=== PATIENT | female | born 1950 | race Caucasian/White ===

== ENCOUNTER 2024-03-07 20:36 | Emergency (ER) | payer MEDICARE, OTHER ==
[~2024-03-07] VITALS: Ht 157.5 cm; Wt 49.9 kg
[2024-03-07 21:18] VITALS: TEMP 97.9
[2024-03-07] MEDS: TDAP [DIPH/PERTUSSIS/TET] 0.5 ML VIAL IM ONE (21:30)
[2024-03-07] MEDS ORDERED: TDAP [DIPH/PERTUSSIS/TET] 0.5 ML VIAL IM ONE (21:39)
[2024-03-07 22:44] VITALS: BP 131/69; O2SAT 95
== END 2024-03-07 23:20 | disposition home or self-care (01) ==
LOC: ER 20:49
DX: S00.03XA Contusion of scalp, initial encounter (principal); F03.90 Unspecified dementia, unspecified severity, without behavioral disturbance, psychotic disturbance, mood disturbance, and anxiety; W18.39XA Other fall on same level, initial encounter; Y93.89 Activity, other specified; Y92.89 Other specified places as the place of occurrence of the external cause; Y99.8 Other external cause status
CPT/HCPCS: 70450-TC; 72125-TC; 90715

== ENCOUNTER 2024-04-07 18:40 | Emergency (ER) | payer MEDICARE, OTHER ==
[~2024-04-07] VITALS: Ht 167.6 cm; Wt 59.0 kg
[2024-04-08 00:28] VITALS: BP 128/89; TEMP 98; O2SAT 96
== END 2024-04-08 00:28 ==
LOC: ER 18:42
DX: S00.83XA Contusion of other part of head, initial encounter (principal); F03.90 Unspecified dementia, unspecified severity, without behavioral disturbance, psychotic disturbance, mood disturbance, and anxiety; W01.0XXA Fall on same level from slipping, tripping and stumbling without subsequent striking against object, initial encounter; Y93.89 Activity, other specified; Y92.89 Other specified places as the place of occurrence of the external cause; Y99.8 Other external cause status
CPT/HCPCS: 70450-TC; 71045-TC; 72125-TC; 72170-TC; 73700-TC; 82962-TC

== ENCOUNTER 2024-05-07 09:41 | Inpatient (IN) | payer MEDICARE, OTHER ==
[2024-05-07] VITALS (23 sets, daily range): BP systolic 69–126; BP diastolic 44–93; TEMP 98.2–98.6; O2SAT 96–100
[~2024-05-07] VITALS: Ht 167.6 cm; Wt 62.6 kg
[2024-05-07] MEDS: IV NS 0.9% 1,000 ML BAG IV ONE (10:15)
[2024-05-07] MEDS: CEFEPIME 1 GM in IV D5W 50 ML IV ONE (10:23)
[2024-05-07] MEDS ORDERED: CHOL100043 PO (10:36)
[2024-05-07] MEDS ORDERED: CRAN400C PO (10:36)
[2024-05-07] MEDS ORDERED: SIME80TA15 PO (10:36)
[2024-05-07] MEDS ORDERED: ACET-868 PO (10:36)
[2024-05-07] MEDS ORDERED: ACET-2030 PO (10:36)
[2024-05-07] MEDS ORDERED: MAGN400O6 PO (10:36)
[2024-05-07] MEDS ORDERED: L. A1TAB10 PO (10:36)
[2024-05-07] MEDS: VANCOMYCIN 1 GM in IV D5W 250 ML IV ONE (10:50)
[2024-05-07 11:08] LABS: LYMPHOCYTES # (AUTO) 2.2 K/uL (0.8-4.8); LYMPHOCYTES % (AUTO) 10.9 % (20.0-44.0); MEAN CORPUSCULAR HEMOGLOBIN 29 PG (26.0-33.0); MEAN CORPUSCULAR HGB CONC 32 g/dl (31.0-36.0); MEAN CORPUSCULAR VOLUME 90 fL (82-100); MONOCYTES # (AUTO) 1.3 K/uL (0.1-1.30); MONOCYTES % (AUTO) 6.2 % (2.0-12.0); NEUTROPHILS # (AUTO) 16.9 K/uL (1.8-8.9); NEUTROPHILS % (AUTO) 82.9 % (43.0-81.0); PLATELET COUNT (AUTO) 137 K/uL (150-450); RED BLOOD CELL COUNT(AUTO) 6.71 MIL/uL (4.0-5.2); RED CELL DISTRIBUTION WIDTH 15.3 % (11.5-15.0); WHITE BLOOD COUNT (AUTO) 20.4 K/uL (4.3-11.0)
[2024-05-07 11:10] LABS: HEMOGLOBIN 19.1 g/dL (11.5-14.8)
[2024-05-07 11:11] LABS: HEMATOCRIT 61 % (33-45)
[2024-05-07 11:21] LABS: INR 1.3 (0.91-1.10); PROTHROMBIN TIME 13.5 SECS (9.2-11.1)
[2024-05-07 11:32] LABS: LYMPHOCYTES % (MANUAL) 10 % (16-48); MONOCYTES % (MANUAL) 3 % (0-11.0); NEUTROPHILS % (MANUAL) 87 (42-76); PLATELET ESTIMATE DECREASED
[2024-05-07] MEDS ORDERED: IV NS 0.9% 1,000 ML IV PRN (12:30)
[2024-05-07] MEDS ORDERED: ONDANSETRON HCL/PF 4 MG/2 ML VIAL IVP PRN (12:30)
[2024-05-07] MEDS ORDERED: ACETAMINOPHEN 325 MG TABLET PO PRN (12:30)
[2024-05-07 12:37] LABS: APPEARANCE,URINE TURBID (CLEAR); BILIRUBIN,URINE 2+ (NEGATIVE); BLOOD, URINE 3+ Ery/uL (NEGATIVE); COLOR,URINE YELLOW (YELLOW); KETONES,URINE TRACE mg/dL (NEGATIVE); LEUKOCYTE ESTERASE ,URINE 2+ (NEGATIVE); NITRITE, URINE POSITIVE (NEGATIVE); PH,URINE 5.5 (5.0-8.0); PROTEIN,URINE 2+ mg/dl (NEGATIVE); UGLUCOSE TRACE mg/dL (NEGATIVE)
[2024-05-07 12:44] LABS: ALANINE AMINOTRANSFERASE 43 U/L (12-78); ALKALINE PHOSPHATASE 101 U/L (46-116); ASPARTATE AMINOTRANSFERASE 40 U/L (15-37); BILIRUBIN,DIRECT 0.5 mg/dL (0.0-0.2); BILIRUBIN,TOTAL 1.5 mg/dL (0.2-1.0); CALCIUM, SERUM 8.4 mg/dL (8.5-10.1); CARBON DIOXIDE 17 mmol/L (21-32); CREATININE 2.9 mg/dL (0.6-1.3); GLUCOSE 197 mg/dL (74-106); POTASSIUM 4.2 mmol/L (3.5-5.1); TOTAL PROTEIN, SERUM 7.1 g/dL (6.4-8.2)
[2024-05-07 12:45] LABS: ADD URINE CULTURE YES; BACTERIA,URINE Many /HPF (None Seen); SQUAMOUS EPITHELIAL CELL,UR Few /HPF (None Seen); WBC,URINE TOO NUMEROUS TO COUN /HPF (0-3)
[2024-05-07 12:49] LABS: CHLORIDE 132 mmol/L (98-107); SODIUM SERUM 169 mmol/L (136-145); UREA NITROGEN, BLOOD 104 mg/dL (7-18)
[2024-05-07] MEDS ORDERED: NOREPINEPHRINE 8 MG in IV D5W 242 ML IV PRN (13:30)
[2024-05-07] MEDS ORDERED: NOREPINEPHRINE 32 MG in IV NS 0.9% 218 ML IV PRN (13:30)
[2024-05-07] MEDS: NOREPINEPHRINE 8 MG in IV D5W 242 ML IV PRN (14:50)
[2024-05-07] MEDS: IV NS 0.9% 1,000 ML IV PRN (15:08)
[2024-05-07 15:17] LABS: CALCIUM, SERUM 8.7 mg/dL (8.5-10.1); CREATININE 2.9 mg/dL (0.6-1.3); POTASSIUM 3.1 mmol/L (3.5-5.1)
[2024-05-07 18:17] LABS: CALCIUM, SERUM 8.3 mg/dL (8.5-10.1); CREATININE 2.9 mg/dL (0.6-1.3); POTASSIUM 2.9 mmol/L (3.5-5.1)
[2024-05-07] MEDS: IV 1/2NS 1000 ML 1,000 ML IV PRN (18:24)
[2024-05-07] MEDS: IV D5W 1,000 ML IV PRN (20:44)
[2024-05-07] MEDS: POTASSIUM CL. PREMIX PERIPHER. 50 ML IV SCH ×2 (21:17→23:30)
[2024-05-07 21:25] LABS: CALCIUM, SERUM 8.2 mg/dL (8.5-10.1)
[2024-05-07 21:50] LABS: POTASSIUM 2.7 mmol/L (3.5-5.1)
[2024-05-08] VITALS (66 sets, daily range): BP systolic 95–127; BP diastolic 63–85; TEMP 98–100; O2SAT 92–100
[2024-05-08 05:16] LABS: HEMATOCRIT 46 % (33-45); HEMOGLOBIN 15.1 g/dL (11.5-14.8); LYMPHOCYTES # (AUTO) 1.5 K/uL (0.8-4.8); LYMPHOCYTES % (AUTO) 9.9 % (20.0-44.0); MEAN CORPUSCULAR HEMOGLOBIN 29 PG (26.0-33.0); MEAN CORPUSCULAR HGB CONC 33 g/dl (31.0-36.0); MEAN CORPUSCULAR VOLUME 88 fL (82-100); MONOCYTES # (AUTO) 0.9 K/uL (0.1-1.30); MONOCYTES % (AUTO) 5.7 % (2.0-12.0); NEUTROPHILS # (AUTO) 12.6 K/uL (1.8-8.9); NEUTROPHILS % (AUTO) 84.4 % (43.0-81.0); RED BLOOD CELL COUNT(AUTO) 5.16 MIL/uL (4.0-5.2); RED CELL DISTRIBUTION WIDTH 14.5 % (11.5-15.0); WHITE BLOOD COUNT (AUTO) 14.9 K/uL (4.3-11.0)
[2024-05-08 05:42] LABS: CREATININE 2.7 mg/dL (0.6-1.3); PHOSPHORUS 2.1 mg/dL (2.5-4.9); POTASSIUM 3.4 mmol/L (3.5-5.1)
[2024-05-08 05:44] LABS: PLATELET COUNT (AUTO) 46 K/uL (150-450)
[2024-05-08 05:54] LABS: BASOPHILS % (MANUAL) 0 % (0.0-2.0); EOSINOPHILS % (MANUAL) 0 % (0-4); LYMPHOCYTES % (MANUAL) 11 % (16-48); MONOCYTES % (MANUAL) 3 % (0-11.0); NEUTROPHILS % (MANUAL) 86 (42-76)
[2024-05-08 05:55] LABS: PLATELET ESTIMATE DECREASED
[2024-05-08] MEDS ORDERED: HEPARIN SODIUM, PORCINE 5000 UNITS/1 ML VIAL SQ SCH (10:00)
[2024-05-08] MEDS: CEFEPIME 2 GM in IV D5W 100 ML IV SCH (10:13)
[2024-05-08] MEDS: PHENYLEPHRINE 50 MG in IV NS 0.9% 245 ML IV PRN (10:44)
[2024-05-08 14:06] LABS: ABG BASE EXCESS -4.7 mmol/L (-2.0-3.0); ABG OXYGEN SATURATION 93.3 % (94.0-98.0); ABG PCO2 22.4 mmHg (32.0-45.0); ABG PH 7.481 (7.350-7.450); ABG TOTAL HEMOGLOBIN 15.7 G/dL (12.0-16.0); COHb 0.3 % (0.5-1.5); MetHb 0.3 % (0.0-1.5); O2Hb 92.7 % (94.0-97.0); SITE, ABG LEFT RADIAL
[2024-05-08] MEDS: AMIODARONE 150 MG in IV D5W 100 ML IV ONE (14:40)
[2024-05-08] MEDS: AMIODARONE 450 MG in IV D5W 241 ML IV PRN (14:58)
[2024-05-09] VITALS (48 sets, daily range): BP systolic 90–128; BP diastolic 54–72; TEMP 98.6–99.1; O2SAT 93–99
[2024-05-09] MEDS: IV NS 0.9% 250 ML IV PRN (05:14)
[2024-05-09 05:31] LABS: PHOSPHORUS 1.4 mg/dL (2.5-4.9); TOTAL PROTEIN, SERUM 5.1 g/dL (6.4-8.2)
[2024-05-09 05:35] LABS: BASOPHILS % (AUTO) 0.1 % (0.0-2.0); EOSINOPHILS % (AUTO) 0.2 % (0.0-6.0); HEMATOCRIT 37 % (33-45); HEMOGLOBIN 12.6 g/dL (11.5-14.8); LYMPHOCYTES # (AUTO) 1.3 K/uL (0.8-4.8); LYMPHOCYTES % (AUTO) 13.5 % (20.0-44.0); MEAN CORPUSCULAR HEMOGLOBIN 30 PG (26.0-33.0); MEAN CORPUSCULAR HGB CONC 35 g/dl (31.0-36.0); MEAN CORPUSCULAR VOLUME 86 fL (82-100); MONOCYTES # (AUTO) 0.6 K/uL (0.1-1.30); MONOCYTES % (AUTO) 5.6 % (2.0-12.0); NEUTROPHILS % (AUTO) 80.6 % (43.0-81.0); RED BLOOD CELL COUNT(AUTO) 4.24 MIL/uL (4.0-5.2); RED CELL DISTRIBUTION WIDTH 14.1 % (11.5-15.0)
[2024-05-09 05:55] LABS: MAGNESIUM 2.3 mg/dL (1.8-2.4)
[2024-05-09 06:02] LABS: ANISOCYTOSIS 1+; BAND % (MANUAL) 1 % (0.0-5.0); BASOPHILS % (MANUAL) 0 % (0.0-2.0); EOSINOPHILS % (MANUAL) 0 % (0-4); LYMPHOCYTES % (MANUAL) 15 % (16-48); MONOCYTES % (MANUAL) 5 % (0-11.0); NEUTROPHILS % (MANUAL) 79 (42-76); PLATELET COUNT (AUTO) 24 K/uL (150-450); PLATELET ESTIMATE DECREASED
[2024-05-09 06:46] LABS: ALBUMIN 1.9 g/dL (3.4-5.0); BILIRUBIN,TOTAL 1.3 mg/dL (0.2-1.0); CALCIUM, SERUM 7.5 mg/dL (8.5-10.1); CREATININE 1.7 mg/dL (0.6-1.3)
[2024-05-09 07:03] LABS: POTASSIUM 2.8 mmol/L (3.5-5.1)
[2024-05-09] MEDS: POTASSIUM CL. PREMIX PERIPHER. 50 ML IV SCH (08:48)
[2024-05-09] MEDS: VANCOMYCIN 1 GM in IV D5W 250ml IV SCH (10:00)
[2024-05-09] MEDS: IV 1/2NS 1000 ML 1,000 ML IV PRN (11:09)
[2024-05-09] MEDS: POTASSIUM PHOSPHATE MM 15 MMOL in IV NS 0.9% 250 ML IV SCH (15:06)
[2024-05-10] VITALS (25 sets, daily range): BP systolic 90–111; BP diastolic 53–70; TEMP 98–98.5; O2SAT 94–100
[2024-05-10 05:54] LABS: ALBUMIN 1.6 g/dL (3.4-5.0); BILIRUBIN,TOTAL 1.3 mg/dL (0.2-1.0); CREATININE 1.1 mg/dL (0.6-1.3); MAGNESIUM 2.1 mg/dL (1.8-2.4); PHOSPHORUS 1.9 mg/dL (2.5-4.9); POTASSIUM 3.1 mmol/L (3.5-5.1); TOTAL PROTEIN, SERUM 4.7 g/dL (6.4-8.2)
[2024-05-10 05:57] LABS: BASOPHILS % (AUTO) 0.1 % (0.0-2.0); EOSINOPHILS % (AUTO) 0.4 % (0.0-6.0); HEMATOCRIT 32 % (33-45); HEMOGLOBIN 11.2 g/dL (11.5-14.8); LYMPHOCYTES # (AUTO) 0.8 K/uL (0.8-4.8); MEAN CORPUSCULAR HEMOGLOBIN 29 PG (26.0-33.0); MEAN CORPUSCULAR HGB CONC 35 g/dl (31.0-36.0); MEAN CORPUSCULAR VOLUME 84 fL (82-100); MONOCYTES # (AUTO) 0.5 K/uL (0.1-1.30); MONOCYTES % (AUTO) 4.8 % (2.0-12.0); NEUTROPHILS # (AUTO) 8.5 K/uL (1.8-8.9); NEUTROPHILS % (AUTO) 86.7 % (43.0-81.0); RED BLOOD CELL COUNT(AUTO) 3.84 MIL/uL (4.0-5.2); WHITE BLOOD COUNT (AUTO) 9.8 K/uL (4.3-11.0)
[2024-05-10 06:00] LABS: PLATELET COUNT (AUTO) 24 K/uL (150-450)
[2024-05-10 06:43] LABS: ANISOCYTOSIS 1+; BAND % (MANUAL) 1 % (0.0-5.0); BASOPHILS % (MANUAL) 0 % (0.0-2.0); EOSINOPHILS % (MANUAL) 0 % (0-4); LYMPHOCYTES % (MANUAL) 10 % (16-48); MONOCYTES % (MANUAL) 5 % (0-11.0); NEUTROPHILS % (MANUAL) 84 (42-76); PLATELET ESTIMATE DECREASED
[2024-05-10] MEDS ORDERED: VANCOMYCIN 750 MG in IV D5W 250 ML IV SCH (10:00)
[2024-05-10] MEDS: POTASSIUM CL. PREMIX PERIPHER. 50 ML IV SCH (10:59)
[2024-05-10] MEDS ORDERED: POTASSIUM CHLORIDE 20 MEQ TAB.PRT.SR PO SCH (11:00)
[2024-05-10] MEDS: CEFEPIME 1 GM in IV D5W 50 ML IV SCH (11:59)
[2024-05-10 13:07] LABS: *SPE A/G RATIO 0.8 (0.7-1.7); *SPE ALBUMIN 2.1 g/dL (2.9-4.4); *SPE ALPHA-1-GLOBULIN 0.4 g/dL (0.0-0.4); *SPE ALPHA-2-GLOBULIN 0.7 g/dL (0.4-1.0); *SPE BETA GLOBULIN 0.6 g/dL (0.7-1.3); *SPE GLOBULIN, TOTAL 2.8 g/dL (2.2-3.9); *SPE M-SPIKE Not Observed g/dL (Not Observed); *SPE PROTEIN TOTAL 4.9 g/dL (6.0-8.5); *SPEGAMMA GLOBULIN 1.1 g/dL (0.4-1.8)
[2024-05-10 13:51] LABS: ABG BASE EXCESS -3.9 mmol/L (-2.0-3.0); ABG OXYGEN SATURATION 94.4 % (94.0-98.0); ABG PCO2 22.8 mmHg (32.0-45.0); ABG PH 7.502 (7.350-7.450); ABG PO2 63.8 mmHg (83.0-108.0); ABG TOTAL HEMOGLOBIN 12.5 G/dL (12.0-16.0); COHb 0.1 % (0.5-1.5); MetHb 0.1 % (0.0-1.5); O2Hb 94.2 % (94.0-97.0); SITE, ABG LEFT RADIAL
[2024-05-10] MEDS: Sodium Phosphate 15 MMOL in IV NS 0.9% 245 ML IV SCH (16:51)
[2024-05-11] VITALS (25 sets, daily range): BP systolic 105–127; BP diastolic 57–80; TEMP 97.8–98.6; O2SAT 96–100
[2024-05-11 05:51] LABS: CALCIUM, SERUM 7.5 mg/dL (8.5-10.1); CREATININE 0.8 mg/dL (0.6-1.3); PHOSPHORUS 2.6 mg/dL (2.5-4.9); POTASSIUM 3.5 mmol/L (3.5-5.1)
[2024-05-11] MEDS: IV D5/0.45 NACL 1,000 ML IV ONE (06:27)
[2024-05-11 07:11] LABS: PTH, INTACT 50 pg/mL (15-65)
[2024-05-11 10:15] LABS: BASOPHILS % (AUTO) 0.1 % (0.0-2.0); EOSINOPHILS # (AUTO) 0.1 K/uL (0.0-0.7); EOSINOPHILS % (AUTO) 1.1 % (0.0-6.0); HEMATOCRIT 32 % (33-45); HEMOGLOBIN 10.9 g/dL (11.5-14.8); LYMPHOCYTES # (AUTO) 0.6 K/uL (0.8-4.8); MEAN CORPUSCULAR HEMOGLOBIN 29 PG (26.0-33.0); MEAN CORPUSCULAR HGB CONC 34 g/dl (31.0-36.0); MEAN CORPUSCULAR VOLUME 85 fL (82-100); MONOCYTES # (AUTO) 0.5 K/uL (0.1-1.30); MONOCYTES % (AUTO) 5.3 % (2.0-12.0); NEUTROPHILS # (AUTO) 8.3 K/uL (1.8-8.9); NEUTROPHILS % (AUTO) 87.5 % (43.0-81.0); RED BLOOD CELL COUNT(AUTO) 3.76 MIL/uL (4.0-5.2); RED CELL DISTRIBUTION WIDTH 14.3 % (11.5-15.0); WHITE BLOOD COUNT (AUTO) 9.5 K/uL (4.3-11.0)
[2024-05-11 10:18] LABS: PLATELET COUNT (AUTO) 30 K/uL (150-450)
[2024-05-11 14:11] LABS: LYMPHOCYTES % (MANUAL) 11 % (16-48); MONOCYTES % (MANUAL) 3 % (0-11.0); NEUTROPHILS % (MANUAL) 86 (42-76)
[2024-05-11 14:12] LABS: ANISOCYTOSIS 1+; PLATELET ESTIMATE DECREASED
[2024-05-11] MEDS: IV D5/0.45 NACL 1,000 ML IV SCH (19:35)
[2024-05-11] MEDS: CEFEPIME 2 GM in IV D5W 50 ML IV SCH (21:13)
[2024-05-12] VITALS (21 sets, daily range): BP systolic 99–137; BP diastolic 61–78; TEMP 97.9–98.2; O2SAT 80–99
[2024-05-12 04:47] LABS: CALCIUM, SERUM 7.4 mg/dL (8.5-10.1); CARBON DIOXIDE 23 mmol/L (21-32); CHLORIDE 112 mmol/L (98-107); CREATININE 0.8 mg/dL (0.6-1.3); GLUCOSE 135 mg/dL (74-106); PHOSPHORUS 1.5 mg/dL (2.5-4.9); SODIUM SERUM 141 mmol/L (136-145); UREA NITROGEN, BLOOD 15 mg/dL (7-18)
[2024-05-12 04:48] LABS: BASOPHILS % (AUTO) 0.1 % (0.0-2.0); EOSINOPHILS # (AUTO) 0.1 K/uL (0.0-0.7); HEMATOCRIT 33 % (33-45); HEMOGLOBIN 11.3 g/dL (11.5-14.8); LYMPHOCYTES # (AUTO) 0.7 K/uL (0.8-4.8); MEAN CORPUSCULAR HEMOGLOBIN 29 PG (26.0-33.0); MEAN CORPUSCULAR HGB CONC 35 g/dl (31.0-36.0); MEAN CORPUSCULAR VOLUME 84 fL (82-100); MONOCYTES # (AUTO) 0.4 K/uL (0.1-1.30); MONOCYTES % (AUTO) 6.3 % (2.0-12.0); NEUTROPHILS # (AUTO) 5.3 K/uL (1.8-8.9); NEUTROPHILS % (AUTO) 80.6 % (43.0-81.0); RED BLOOD CELL COUNT(AUTO) 3.87 MIL/uL (4.0-5.2); RED CELL DISTRIBUTION WIDTH 14.2 % (11.5-15.0); WHITE BLOOD COUNT (AUTO) 6.6 K/uL (4.3-11.0)
[2024-05-12 07:00] LABS: PLATELET COUNT (AUTO) 35 K/uL (150-450)
[2024-05-12] MEDS: POTASSIUM CL. PREMIX PERIPHER. 50 ML IV SCH (09:22)
[2024-05-12 10:59] LABS: EOSINOPHILS % (MANUAL) 3 % (0-4); LYMPHOCYTES % (MANUAL) 16 % (16-48); MONOCYTES % (MANUAL) 3 % (0-11.0); NEUTROPHILS % (MANUAL) 78 (42-76); PLATELET ESTIMATE DECREASED
[2024-05-12 11:00] LABS: OVALOCYTES 1+
[2024-05-12] MEDS: K PHOS NEUTRAL 250 MG TABLET PO ONE (15:40)
[2024-05-13] VITALS: BP 102/64; TEMP 97.5; O2SAT 98
[2024-05-13 04:00] VITALS: BP 106/66; TEMP 98.1; O2SAT 96
[2024-05-13 07:33] LABS: CALCIUM, SERUM 7.4 mg/dL (8.5-10.1); CREATININE 0.7 mg/dL (0.6-1.3); MAGNESIUM 1.9 mg/dL (1.8-2.4); PHOSPHORUS 1.7 mg/dL (2.5-4.9)
[2024-05-13 08:15] VITALS: BP 120/63; TEMP 97.3; O2SAT 99
[2024-05-13 08:24] LABS: POTASSIUM 2.7 mmol/L (3.5-5.1)
[2024-05-13 08:37] LABS: BASOPHILS % (AUTO) 0.1 % (0.0-2.0); EOSINOPHILS # (AUTO) 0.1 K/uL (0.0-0.7); EOSINOPHILS % (AUTO) 1.8 % (0.0-6.0); HEMATOCRIT 35 % (33-45); HEMOGLOBIN 12.2 g/dL (11.5-14.8); LYMPHOCYTES % (AUTO) 13.9 % (20.0-44.0); MEAN CORPUSCULAR HEMOGLOBIN 29 PG (26.0-33.0); MEAN CORPUSCULAR HGB CONC 35 g/dl (31.0-36.0); MEAN CORPUSCULAR VOLUME 85 fL (82-100); MONOCYTES # (AUTO) 0.7 K/uL (0.1-1.30); MONOCYTES % (AUTO) 9.7 % (2.0-12.0); NEUTROPHILS # (AUTO) 5.6 K/uL (1.8-8.9); NEUTROPHILS % (AUTO) 74.5 % (43.0-81.0); PLATELET COUNT (AUTO) 51 K/uL (150-450); RED BLOOD CELL COUNT(AUTO) 4.16 MIL/uL (4.0-5.2); WHITE BLOOD COUNT (AUTO) 7.5 K/uL (4.3-11.0)
[2024-05-13] MEDS: POTASSIUM CHLORIDE 20 MEQ TAB.PRT.SR PO SCH (10:47)
[2024-05-13] MEDS: Magnesium 1GM/D5W 100ML PREMIX 100 ML IV SCH (10:47)
[2024-05-13] MEDS: POTASSIUM CL. PREMIX PERIPHER. 50 ML IV SCH (11:38)
[2024-05-13 12:00] VITALS: BP 108/59; TEMP 97.4; O2SAT 99
[2024-05-13] MEDS: Sodium Phosphate 15 MMOL in IV NS 0.9% 245 ML IV ONE (16:11)
[2024-05-13 16:36] VITALS: BP 115/61; TEMP 97.5; O2SAT 99
[2024-05-13 20:00] VITALS: BP 99/61; TEMP 98.5; O2SAT 94
[2024-05-13 21:05] LABS: BAND % (MANUAL) 2 % (0.0-5.0); EOSINOPHILS % (MANUAL) 1 % (0-4); LYMPHOCYTES % (MANUAL) 12 % (16-48); MONOCYTES % (MANUAL) 7 % (0-11.0); NEUTROPHILS % (MANUAL) 78 (42-76); PLATELET ESTIMATE DECREASED
[2024-05-14] VITALS: BP 122/63; TEMP 98; O2SAT 95
[2024-05-14 04:00] VITALS: BP 113/61; TEMP 98; O2SAT 95
[2024-05-14] MEDS: IV 1/2NS 1000 ML 1,000 ML IV PRN (07:39)
[2024-05-14 08:00] VITALS: BP 111/71; TEMP 97.1; O2SAT 93
[2024-05-14 08:14] LABS: BASOPHILS % (AUTO) 0.1 % (0.0-2.0); EOSINOPHILS # (AUTO) 0.1 K/uL (0.0-0.7); EOSINOPHILS % (AUTO) 1.4 % (0.0-6.0); HEMATOCRIT 32 % (33-45); HEMOGLOBIN 11.1 g/dL (11.5-14.8); LYMPHOCYTES # (AUTO) 0.9 K/uL (0.8-4.8); LYMPHOCYTES % (AUTO) 13.2 % (20.0-44.0); MEAN CORPUSCULAR HEMOGLOBIN 29 PG (26.0-33.0); MEAN CORPUSCULAR HGB CONC 35 g/dl (31.0-36.0); MEAN CORPUSCULAR VOLUME 83 fL (82-100); MONOCYTES # (AUTO) 0.4 K/uL (0.1-1.30); MONOCYTES % (AUTO) 5.2 % (2.0-12.0); NEUTROPHILS # (AUTO) 5.6 K/uL (1.8-8.9); NEUTROPHILS % (AUTO) 80.1 % (43.0-81.0); PLATELET COUNT (AUTO) 76 K/uL (150-450); RED BLOOD CELL COUNT(AUTO) 3.87 MIL/uL (4.0-5.2); RED CELL DISTRIBUTION WIDTH 14.3 % (11.5-15.0)
[2024-05-14 09:00] LABS: CALCIUM, SERUM 7.6 mg/dL (8.5-10.1); CREATININE 0.7 mg/dL (0.6-1.3); MAGNESIUM 1.9 mg/dL (1.8-2.4); POTASSIUM 3.3 mmol/L (3.5-5.1)
[2024-05-14] MEDS: POTASSIUM PHOSPHATE MM 15 MMOL in IV NS 0.9% 250 ML IV SCH (11:24)
[2024-05-14 12:00] VITALS: BP 124/60; TEMP 97.2; O2SAT 95
[2024-05-14 12:48] LABS: ANISOCYTOSIS 1+; EOSINOPHILS % (MANUAL) 2 % (0-4); LYMPHOCYTES % (MANUAL) 14 % (16-48); MONOCYTES % (MANUAL) 1 % (0-11.0); NEUTROPHILS % (MANUAL) 83 (42-76); PLATELET ESTIMATE DECREASED
[2024-05-14] MEDS: JEVITY 1.2 CAL 1,000 ML BOTTLE GT PRN (13:23)
[2024-05-14] MEDS: Sodium Phosphate 15 MMOL in IV NS 0.9% 245 ML IV ONE (15:24)
[2024-05-14 16:00] VITALS: BP 105/66; TEMP 97.3; O2SAT 95
[2024-05-14 20:00] VITALS: BP 105/65; TEMP 97.9; O2SAT 94
[2024-05-15] VITALS: BP 125/69; TEMP 98; O2SAT 94
[2024-05-15 04:00] VITALS: BP 105/59; TEMP 97.9; O2SAT 95
[2024-05-15 07:54] LABS: BASOPHILS % (AUTO) 0.1 % (0.0-2.0); EOSINOPHILS # (AUTO) 0.1 K/uL (0.0-0.7); EOSINOPHILS % (AUTO) 1.7 % (0.0-6.0); HEMATOCRIT 34 % (33-45); HEMOGLOBIN 11.3 g/dL (11.5-14.8); LYMPHOCYTES # (AUTO) 1.2 K/uL (0.8-4.8); LYMPHOCYTES % (AUTO) 15.3 % (20.0-44.0); MEAN CORPUSCULAR HEMOGLOBIN 30 PG (26.0-33.0); MEAN CORPUSCULAR HGB CONC 34 g/dl (31.0-36.0); MEAN CORPUSCULAR VOLUME 89 fL (82-100); MONOCYTES # (AUTO) 0.5 K/uL (0.1-1.30); MONOCYTES % (AUTO) 6.4 % (2.0-12.0); NEUTROPHILS # (AUTO) 5.9 K/uL (1.8-8.9); NEUTROPHILS % (AUTO) 76.5 % (43.0-81.0); PLATELET COUNT (AUTO) 81 K/uL (150-450); RED BLOOD CELL COUNT(AUTO) 3.79 MIL/uL (4.0-5.2); RED CELL DISTRIBUTION WIDTH 15.1 % (11.5-15.0); WHITE BLOOD COUNT (AUTO) 7.7 K/uL (4.3-11.0)
[2024-05-15 07:57] LABS: CALCIUM, SERUM 7.5 mg/dL (8.5-10.1); CREATININE 0.7 mg/dL (0.6-1.3); MAGNESIUM 2.1 mg/dL (1.8-2.4); PHOSPHORUS 2.5 mg/dL (2.5-4.9); POTASSIUM 3.1 mmol/L (3.5-5.1)
[2024-05-15 08:00] VITALS: BP 111/65; TEMP 97.4; O2SAT 95
[2024-05-15] MEDS: POTASSIUM CHLORIDE 20 MEQ POWDER PACKET NG SCH (09:10)
[2024-05-15 11:11] LABS: EOSINOPHILS % (MANUAL) 1 % (0-4); LYMPHOCYTES % (MANUAL) 19 % (16-48); MONOCYTES % (MANUAL) 2 % (0-11.0); NEUTROPHILS % (MANUAL) 78 (42-76); PLATELET ESTIMATE DECREASED
[2024-05-15 12:00] VITALS: BP 111/63; TEMP 97.8; O2SAT 95
[2024-05-15 16:00] VITALS: BP 105/59; TEMP 97.7; O2SAT 98
[2024-05-15 20:00] VITALS: BP 127/73; TEMP 97.3; O2SAT 95
[2024-05-15] MEDS: JEVITY 1.2 CAL 1,000 ML BOTTLE GT PRN (21:54)
[2024-05-16] VITALS: BP 116/65; TEMP 98.1; O2SAT 97
[2024-05-16 04:00] VITALS: BP 143/85; TEMP 98.1; O2SAT 97
[2024-05-16 07:10] LABS: CALCIUM, SERUM 8.1 mg/dL (8.5-10.1); CREATININE 0.7 mg/dL (0.6-1.3); MAGNESIUM 1.9 mg/dL (1.8-2.4); PHOSPHORUS 1.9 mg/dL (2.5-4.9); POTASSIUM 3.8 mmol/L (3.5-5.1)
[2024-05-16 07:27] LABS: BASOPHILS % (AUTO) 0.2 % (0.0-2.0); EOSINOPHILS # (AUTO) 0.1 K/uL (0.0-0.7); EOSINOPHILS % (AUTO) 1.3 % (0.0-6.0); HEMATOCRIT 33 % (33-45); HEMOGLOBIN 11.1 g/dL (11.5-14.8); LYMPHOCYTES # (AUTO) 1.1 K/uL (0.8-4.8); LYMPHOCYTES % (AUTO) 14.1 % (20.0-44.0); MEAN CORPUSCULAR HEMOGLOBIN 29 PG (26.0-33.0); MEAN CORPUSCULAR HGB CONC 34 g/dl (31.0-36.0); MEAN CORPUSCULAR VOLUME 84 fL (82-100); MONOCYTES # (AUTO) 0.3 K/uL (0.1-1.30); MONOCYTES % (AUTO) 4.3 % (2.0-12.0); NEUTROPHILS # (AUTO) 6.1 K/uL (1.8-8.9); NEUTROPHILS % (AUTO) 80.1 % (43.0-81.0); PLATELET COUNT (AUTO) 107 K/uL (150-450); RED CELL DISTRIBUTION WIDTH 14.1 % (11.5-15.0); WHITE BLOOD COUNT (AUTO) 7.7 K/uL (4.3-11.0)
[2024-05-16 08:00] VITALS: BP 111/65; TEMP 97.4; O2SAT 95
[2024-05-16] MEDS: NEUTRA PHOS 1 POWD.PACKET NG SCH (09:30)
[2024-05-16 12:00] VITALS: BP 103/68; TEMP 98.3; O2SAT 95
[2024-05-16] MEDS ORDERED: ANESTHESIA TRAY IN PYXIS 1 EA TRAY MC ONE (14:37)
[2024-05-16 16:00] VITALS: BP 110/70; TEMP 98.6; O2SAT 99
[2024-05-16 20:00] VITALS: BP 129/67; TEMP 97.9; O2SAT 96
[2024-05-17] VITALS: BP_SYST 126; BP_SYST 129; BP_DIAS 62; BP_DIAS 67; TEMP 97.9; TEMP 98.4; O2SAT 96; O2SAT 99
[2024-05-17 04:00] VITALS: BP 112/88; TEMP 98; O2SAT 99
[2024-05-17 08:00] VITALS: BP 111/59; TEMP 98.2; O2SAT 98
[2024-05-17 12:00] VITALS: BP 105/62; TEMP 97.8; O2SAT 100
[2024-05-17] MEDS ORDERED: JEVITY 1.5 CAL LIQUID 1,000 ML BOTTLE GT PRN (12:00)
[2024-05-17 16:00] VITALS: BP 108/69; TEMP 98.1; O2SAT 99
== END 2024-05-17 17:46 | DRG 871 ==
LOC: ER 09:45 → TELE-TD 10:34 → ICU 13:45 → TELE-TD 05-12 18:27 → TELE1 05-12 18:40
PROVIDERS: ADMIT Nurse Practitioner Acute Care; ATTEND Nurse Practitioner Acute Care
PROC: 02HV33Z Insertion of Infusion Device into Superior Vena Cava, Percutaneous Approach (ICD-10-PCS; principal; 2024-05-08)
PROC: B548ZZA Ultrasonography of Superior Vena Cava, Guidance (ICD-10-PCS; 2024-05-08)
PROC: 0DH63UZ Insertion of Feeding Device into Stomach, Percutaneous Approach (ICD-10-PCS; 2024-05-16)
DX: A41.9 Sepsis, unspecified organism (principal); G93.41 Metabolic encephalopathy; N17.0 Acute kidney failure with tubular necrosis; E44.1 Mild protein-calorie malnutrition; N39.0 Urinary tract infection, site not specified; E87.0 Hyperosmolality and hypernatremia; E87.20 Acidosis, unspecified; E86.9 Volume depletion, unspecified; B96.89 Other specified bacterial agents as the cause of diseases classified elsewhere; E86.0 Dehydration; K29.70 Gastritis, unspecified, without bleeding; K21.9 Gastro-esophageal reflux disease without esophagitis; Z20.822 Contact with and (suspected) exposure to COVID-19; Z79.899 Other long term (current) drug therapy; F03.C0 Unspecified dementia, severe, without behavioral disturbance, psychotic disturbance, mood disturbance, and anxiety; M89.8X9 Other specified disorders of bone, unspecified site; I48.91 Unspecified atrial fibrillation; E11.40 Type 2 diabetes mellitus with diabetic neuropathy, unspecified; H26.9 Unspecified cataract; R91.1 Solitary pulmonary nodule; E88.09 Other disorders of plasma-protein metabolism, not elsewhere classified; I10 Essential (primary) hypertension; E87.6 Hypokalemia; E83.41 Hypermagnesemia; D75.1 Secondary polycythemia; D69.59 Other secondary thrombocytopenia; R13.10 Dysphagia, unspecified; Z89.511 Acquired absence of right leg below knee; Z68.22 Body mass index [BMI] 22.0-22.9, adult
CPT/HCPCS: 36415; 36600; 43246; 71045-TC; 76770-TC; 80048-TC; 80053-TC; 80076-TC; 80202-TC; 81001; 82550-TC; 82553; 82803-TC; 83605-TC; 83735-TC; 83970; 84100-TC; 84155; 84165; 85025-TC; 85730-TC; 86850-TC; 87040-TC; 87081-TC; 87086-TC; 92526; 92611-TC; 94799-TC; A4223; A9563; G0378; J0282; J0692; J2704; J3370; J3371; J3475; J3480; J3490; J7030; J7050; J7060; J7070